=== PATIENT | male | born 1970 | race Hispanic/Latino ===

== ENCOUNTER 2017-02-18 06:06 | Day surgery (SDC) | payer BC, OTHER ==
[2017-02-11 19:33] VITALS: BMI 36.6
[2017-02-18] MEDS ORDERED: Lactated Ringer's 1,000 ML IV ONE (06:55)
[2017-02-18] MEDS ORDERED: Lidocaine 4% (Laryng-O-Jet) Kit MM ONE (07:10)
[2017-02-18] MEDS ORDERED: Phenylephrine 10 mg/ml Inj ONE (07:12)
[2017-02-18] MEDS ORDERED: Propofol 10 mg/ml Inj (20 ML) ONE (07:12)
[2017-02-18] MEDS ORDERED: Ropivacaine 0.5% 30ML IV ONE (07:20)
[2017-02-18] MEDS ORDERED: Succinylcholine 200 mg/10 ml Inj IV ONE (07:52)
[2017-02-18] MEDS ORDERED: Rocuronium 10 mg/ml (5 ml) ONE ×2 (08:07→12:21)
[2017-02-18] MEDS ORDERED: Desflurane Inhalation Anesthetic Liq (240 ml) ONE (08:10)
[2017-02-18] MEDS ORDERED: Lidocaine 2% w Epi 1:100,000 Inj IJ ONE ×2 (08:24→08:27)
[2017-02-18] MEDS ORDERED: Neostigmine Methylsulfate 3mg/3ml Syringe IV ONE (08:36)
[2017-02-18] MEDS ORDERED: Neostigmine Methylsulfate 2 MG/2 ML ML IV ONE ×2 (08:36→12:27)
[2017-02-18] MEDS ORDERED: Dexamethasone 4 mg/1 ml ONE (08:53)
[2017-02-18] MEDS ORDERED: Liquid Adhesive TOP ONE (08:57)
[2017-02-18] MEDS ORDERED: Lidocaine 2% MPF (5 ml) Inj ONE (09:14)
[2017-02-18] MEDS ORDERED: Lactated Ringer's 1,000 ML IV SCH (09:34)
[2017-02-18] MEDS ORDERED: HYDROmorphone 0.5 mg/0.5 ml ISec IVP PRN (09:34)
[2017-02-18] MEDS ORDERED: Labetalol 5mg/ml (4ml) ONE (10:31)
[2017-02-18] MEDS ORDERED: Oxycodone/Acetaminophen 5/325 mg Tab PO PRN (10:59)
--- NOTE | 2017-02-18 10:59 | PCM.SURG1 ---
Surgeon's Initial Post Op Note - Surgeon's Notes Surgeon: Sherice Marmolejo MD Kiln Labourer: Dr. Estrella Type of Anesthesia: General Endo Pre-Operative Diagnosis: Left distal biceps tendon rupture Operative Findings: see op report Post-Operative Diagnosis: same as pre-op dx Operation Performed: Left open repair of distal biceps tendon Specimen/Specimens Removed: none Estimated Blood Loss: EBL {In ML}: 15 Date of Surgery/Procedure: 02/18/17 Time of Surgery/Procedure: 08:00
[2017-02-18 11:11] VITALS: PULSE 77; RESP 18
[2017-02-18 11:24] VITALS: BP 142/91; TEMP 98.5; O2SAT 96
--- NOTE | 2017-02-18 13:07 | OP ---
PROCEDURE DATE: 02/18/2017 PREOPERATIVE DIAGNOSIS: Left distal biceps tendon rupture. POSTOPERATIVE DIAGNOSIS: Left distal biceps tendon rupture. PROCEDURE: Left open distal biceps tendon repair. ATTENDING PHYSICIAN: Sherice Marmolejo MD HYDRAULIC AND PLUMBING INSTALLER: Arlet Estrella MD TYPE OF ANESTHESIA: General and postoperative interscalene block. IMPLANTS: Arthrex, bio tenodesis screw and a cortical button. ESTIMATED BLOOD LOSS: 10 mL. COMPLICATIONS: None. HISTORY: The patient is a 46-year-old male, who had an injury to his left elbow. The patient was seen by me in the office and the MRI showing a complete rupture of the distal biceps tendon on the left with retraction. I had a detailed discussion with the patient reviewing different treatment options including both nonsurgical and surgical. After a stable consideration, the patient opted to proceed with the surgical repair of the left distal biceps tendon rupture. I have reviewed the risks and benefits of the surgery with the patient in detail; the risk included but not limited to bleeding, infection, nerve vessel damage, continued pain, re-ruptured, need for further surgery, stiffness among others. The patient fully understood the risks and benefits and wanted to proceed. DESCRIPTION OF THE PROCEDURE: On the day of the surgery, the patient was admitted to pre-operative holding area. A laterality sheet was completed confirming the patient's left elbow to be correct operative site. The patient was brought into the operating room table. He underwent general anesthesia. He was given appropriate prophylactic antibiotics. The left arm was draped and prepped in standard sterile manner. First, a time out was completed, confirming the patient's left elbow to be the correct operative site. A non-sterile tourniquet was placed on the patient's arm and tourniquet was inflated to 250 mmHg. We proceeded with a 4 cm incision about 2.5 ch distal to antecubital fossa and using a #10 blade, the incision was made; care was taken to protect the superficial neurovascular structure. The antral within the brachioradialis and the pronator were identified, and a deep dissection was taken down until the insertion of the biceps tendon at the radial tuberosity. Proximally using blunt dissection, the tone edge of the biceps tendon was identified and was able to mobilize after releasing the scar tissue. After releasing the scar tissue, degenerative end of the tendon was exercised using a fresh blade and the tendon was whip stitched using #2 FiberWire suture. Then under direct radiographic guidance, a drill pin was drilled at the insertion point after radial tuberosity. By cortically, the tendon was measured and was found to be 7 mm in diameter and a 7 mm unicortical drill hole was made at the radial tuberosity on the tendon and the cortical button was replaced in a 4 cortex and flipped, and tendon was brought in to the drill hole and also backed up with a 7 mm biceps tenodesis screw. Afterwards, the patient had no attention until the 30 degrees of extension and had secured fixation with pronation and supination. The wound was copiously irrigated; all the debris was removed. The skin edges were closed using 2-0 Vicryl and Monocryl sutures and there were no complication of surgery. Dr. Arlet Estrella, is an upper extremity plastic surgeon, who was present for the entirety of the case as his participation was crucial in critical dissection, retraction of critical neurovascular structure, proper implant positioning and successful completion of the surgery. Sherice Marmolejo MD JENNIFER
--- NOTE | 2017-02-19 18:41 | PCM.ANESB1 ---
Interscalene Block - Brachial Plexus Date of Procedure: 02/18/17 Anesthesiologist: Ej Pre-Procedure Diagnosis: Left distal biceps tendon rupture Post-Procedure Diagnosis: same Procedure Performed: Interscalene Block of Brachial Plexus Left - Procedure Interscalene Block of Brachial Plexus: This procedure was explained to the patient that it is for post-operative pain management. Consent was obtained after a thorough discussion with the patient regarding the benefits and possible complications of local anesthetic block of the Brachial Plexus at the Interscalene area. The patient was brought to the Operating Room and the operation was performed. After emersion from general anesthesia and a normal necrological exam performed by surgeon, a time out was held with the circulating nurse and patient to confirm the correct block. After applying Oxygen by nasal cannula, the patient's head was gently rotated away from the __left____operative shoulder and the anterior scalene groove was carefully palpated. The ultrasound transducer was then applied to the skin in the transverse plane and the brachial plexus was visualized lateral to the carotid artery and in between the anterior and middle scalene muscles. After identification,the anterior lateral portion of the neck was prepped with Betadine solution three times and Lidocaine 1% was injected subcutaneously for topical analgesia. At this point, a # 22 gauge Stimuplex 2 inches insulated needle was inserted into the interscalene groove and directed in a caudal and midline direction. The needle was inserted lateral to the ultrasound transducer in-plane towards the brachial plexus in a [id number] direction. Needle advancement was performed carefully under direct ultrasound visualization. Nerve stimulator was used and twitched of the affected extremity including the hand brachialis muscles, biceps and the deltoid was obtained at a current of ___0.5__MA. After repeated negative aspiration,___2__cc of___0.5%__, ropivicaine were injected and this was followed with __18___cc of ___0.5__% ___ropivicaine__ . Under ultrasound guidance the local anesthetics were observed surrounding the roots of the brachial plexus. The needle was removed intact and sterile dressing was applied. The patient had stable vital signs, was conscious and in no apparent distress. The patient tolerated the interscalene block of the bracheal plexus well with stable vital signs and reported alleviation of pain within 10 minutes.
== END 2017-02-18 11:53 | disposition home or self-care (01) ==
LOC: H.OPSURG 06:06
PROVIDERS: ATTEND Orthopaedic Surgery
DX: S46.212A Strain of muscle, fascia and tendon of other parts of biceps, left arm, initial encounter (principal); X58.XXXA Exposure to other specified factors, initial encounter
CPT/HCPCS: 24342; J0330; J0690; J1100; J1885; J2001; J2370; J2405; J2704; J2710; J2765; J3010; J7120